=== PATIENT | male | born 1980 | race Caucasian/White ===

== ENCOUNTER 2018-05-31 22:35 | Inpatient (IN) | payer OTHER, MEDICAID ==
[~2018-05-31] VITALS: Ht 177.8 cm; Wt 102.1 kg
[2018-05-31] MEDS ORDERED: SODIUM CHLORIDE 0.9% 1,000 ML IV ONE (23:45)
[2018-06-01 01:01] LABS: BASOPHILS % 1.2 % (0.0-2.0); EOSINOPHILS % 1.6 % (0.0-5.0); HEMATOCRIT. 38.2 % (42.0-52.0); HEMOGLOBIN. 12.8 g/dL (14.0-18.0); LYMPHOCYTES % 16.6 % (20.0-50.0); MEAN CORPUSCULAR HEMOGLOBIN 27.1 pg (28.0-32.0); MEAN PLATELET VOLUME 7.1 fl (7.4-10.4); MONOCYTES % 14.7 % (2.0-8.0); NEUTROPHILS % 65.9 % (40.0-76.0); PLATELET 334 x1000/uL (130-400); RED BLOOD CELL COUNT 4.72 mill/uL (4.7-6.1); RED CELL DISTRIBUTION WIDTH 20.6 % (11.6-14.6)
[2018-06-01 01:03] LABS: CHLORIDE 106 mEq/L (98-107); CLARITY URINE CLEAR (CLEAR); COLOR URINE YELLOW (YELLOW); KETONES URINE NEGATIVE (NEGATIVE); LEUKOCYTE ESTERASE URINE NEGATIVE (NEGATIVE); NITRITE URINE NEGATIVE (NEGATIVE); OCCULT BLOOD URINE NEGATIVE (NEGATIVE); PH URINE 6.5 (4.5-8.0); PROTEIN URINE NEGATIVE (NEGATIVE); SPECIFIC GRAVITY URINE 1.015 (1.005-1.030); UROBILINOGEN URINE 0.2 E.U./dL (0.2-1.0)
[2018-06-01 01:09] LABS: INR 1.1; PARTIAL THROMBOPLASTIN TIME 36.9 sec (23.4-31.0); PROTHROMBIN TIME 10.7 sec (9.1-11.1)
[2018-06-01] MEDS ORDERED: MORPHINE SULFATE 4 MG/ML CPJ (NOT FOR IM USE) IV STA (02:07)
[2018-06-01] MEDS ORDERED: PANTOPRAZOLE SODIUM 40 MG/VIAL IV STA (02:07)
[2018-06-01] MEDS ORDERED: ONDANSETRON HCL 4MG/2ML INJ IV STA (02:07)
[2018-06-01] MEDS ORDERED: MORPHINE SULFATE 2 MG/ML CPJ (NOT FOR IM USE) IV ONE (06:14)
[2018-06-01] MEDS ORDERED: GUAIFENESIN 200MG/10ML SUGAR FREE UDC PO PRN (06:45)
[2018-06-01] MEDS ORDERED: DOCUSATE SODIUM 100MG CAPSULE PO PRN (06:45)
[2018-06-01] MEDS ORDERED: MAGNESIUM/ALUMINUM HYDROXIDE/SIMETHICONE 30ML UDC PO PRN (06:45)
[2018-06-01] MEDS ORDERED: CLONIDINE 0.1MG TABLET PO PRN (06:45)
[2018-06-01] MEDS ORDERED: HYDROCODONE/ACETAMINOPHEN 10/325MG TABLET PO PRN (06:45)
[2018-06-01] MEDS ORDERED: IPRATROPIUM/ALBUTEROL 0.5-3(2.5)MG/3ML NEB INH PRN (06:45)
[2018-06-01] MEDS ORDERED: NA PHOS,M-B/NA PHOS,DI-BA ENEMA 118ML PR PRN (09:00)
[2018-06-01 09:50] VITALS: BP 107/41
[2018-06-01] MEDS: ONDANSETRON HCL 4MG/2ML INJ IV PRN ×3 (09:59→17:54)
[2018-06-01 10:00] VITALS: BP 107/41
[2018-06-01] MEDS: MORPHINE SULFATE 4 MG/ML CPJ (NOT FOR IM USE) IV PRN ×4 (10:00→22:01)
[2018-06-01] MEDS: SODIUM CHLORIDE 0.45% 1,000 ML IV SCH (10:15)
[2018-06-01] MEDS ORDERED: CYCL10TA7 MT (10:44)
[2018-06-01] MEDS ORDERED: COLC0.6C3 MT (10:44)
[2018-06-01] MEDS ORDERED: ATOR40TA70 MT (10:44)
[2018-06-01] MEDS ORDERED: DIVA500T3 MT (10:44)
[2018-06-01] MEDS ORDERED: ALBU6.7H INH (10:44)
[2018-06-01] MEDS ORDERED: DIPH25TA24 MT (10:44)
[2018-06-01] MEDS ORDERED: DIAZ5TAB4 PO (10:44)
[2018-06-01] MEDS ORDERED: DOCU-150 MT (10:44)
[2018-06-01] MEDS ORDERED: OLAN2.5T29 MT (11:03)
[2018-06-01] MEDS ORDERED: POLY17PO28 MT (11:03)
[2018-06-01] MEDS ORDERED: GABA800T97 MT (11:03)
[2018-06-01] MEDS ORDERED: FERR325T6 MT (11:03)
[2018-06-01] MEDS ORDERED: MORP15TA67 MT (11:03)
[2018-06-01] MEDS ORDERED: WARF1TAB85 MT (11:03)
[2018-06-01] MEDS ORDERED: P20 PO (11:03)
[2018-06-01] MEDS ORDERED: METO25TA6 MT (11:03)
[2018-06-01] MEDS ORDERED: EZET10TA26 MT (11:03)
[2018-06-01] MEDS ORDERED: METF-414 MT (11:03)
[2018-06-01] MEDS ORDERED: RANO500T3 MT (11:03)
[2018-06-01] MEDS ORDERED: ONDA4TAB5 MT (11:03)
[2018-06-01] MEDS ORDERED: SUCR1TAB MT (11:03)
[2018-06-01] MEDS ORDERED: TRAZ-212 MT (11:03)
[2018-06-01] MEDS ORDERED: P50 PO (11:03)
[2018-06-01] MEDS ORDERED: MELO-106 MT (11:03)
[2018-06-01] MEDS ORDERED: PROT40 MT (11:03)
[2018-06-01 12:00] VITALS: BP 109/43
[2018-06-01 13:28] LABS: CHLORIDE 107 mEq/L (98-107)
[2018-06-01] MEDS: IPRATROPIUM/ALBUTEROL 0.5-3(2.5)MG/3ML NEB HHN SCH ×2 (15:54→21:34)
[2018-06-01 16:00] VITALS: BP 117/56
[2018-06-01 16:27] LABS: TOTAL IRON BINDING CAPACITY 238 ug/dL (250-450)
[2018-06-01 16:58] LABS: FOLIC ACID (FOLATE) SERUM 16.1 ng/mL (>5.38)
[2018-06-01] MEDS: PANTOPRAZOLE SODIUM 40 MG/VIAL IV SCH (17:54)
[2018-06-01 20:00] VITALS: BP 122/54
[2018-06-01 20:40] LABS: HEMATOCRIT 37.5 % (42.0-52.0); HEMOGLOBIN 12.4 g/dL (14.0-18.0)
[2018-06-01 21:08] LABS: LDL CHOLESTEROL 105 mg/dL (5-100)
[2018-06-01 21:11] LABS: CREATINE KINASE 65 IU/L (39-308); CREATINE KINASE MB FRACTION < 1.0 ng/mL (0.5-3.6); HDL CHOLESTEROL 39 mg/dL (40-59)
[2018-06-01 23:17] LABS: HEMATOCRIT 36.7 % (42.0-52.0)
[2018-06-02] VITALS: BP 110/56
[2018-06-02] MEDS: LORAZEPAM 2MG/ML CPJ IV PRN (00:57)
[2018-06-02] MEDS: DIPHENHYDRAMINE 50MG/ML VIAL IV PRN (01:36)
[2018-06-02] MEDS: ONDANSETRON HCL 4MG/2ML INJ IV PRN ×2 (02:13→21:04)
[2018-06-02] MEDS: IPRATROPIUM/ALBUTEROL 0.5-3(2.5)MG/3ML NEB HHN SCH ×6 (02:14→20:15)
[2018-06-02] MEDS: MORPHINE SULFATE 4 MG/ML CPJ (NOT FOR IM USE) IV PRN ×5 (02:14→21:05)
[2018-06-02 04:00] VITALS: BP 104/68
[2018-06-02 06:37] LABS: BASOPHILS % 0.9 % (0.0-2.0); EOSINOPHILS % 2.3 % (0.0-5.0); HEMATOCRIT. 36.3 % (42.0-52.0); LYMPHOCYTES % 12.9 % (20.0-50.0); MEAN CORPUSCULAR VOLUME 81.4 fL (80.0-94.0); MEAN PLATELET VOLUME 7.1 fl (7.4-10.4); MONOCYTES % 14.2 % (2.0-8.0); NEUTROPHILS % 69.7 % (40.0-76.0); PLATELET 303 x1000/uL (130-400); RED BLOOD CELL COUNT 4.46 mill/uL (4.7-6.1); RED CELL DISTRIBUTION WIDTH 19.6 % (11.6-14.6)
[2018-06-02 06:38] LABS: INR 1.1; PARTIAL THROMBOPLASTIN TIME 36.6 sec (23.4-31.0); PROTHROMBIN TIME 10.7 sec (9.1-11.1)
[2018-06-02 06:51] LABS: CHLORIDE 105 mEq/L (98-107)
[2018-06-02 07:06] LABS: CREATINE KINASE 46 IU/L (39-308); CREATINE KINASE MB FRACTION < 1.0 ng/mL (0.5-3.6); HDL CHOLESTEROL 36 mg/dL (40-59); LDL CHOLESTEROL 96 mg/dL (5-100); T4 FREE 0.87 ng/dL (0.76-1.46)
[2018-06-02 08:00] VITALS: BP 134/65
[2018-06-02] MEDS: PANTOPRAZOLE SODIUM 40 MG/VIAL IV SCH (08:35)
[2018-06-02] MEDS: SODIUM CHLORIDE 0.45% 1,000 ML IV SCH (08:36)
[2018-06-02 12:00] VITALS: BP 110/44
[2018-06-02] MEDS ORDERED: SIMETHICONE 40 MG/0.6 ML 30ML ONE (12:39)
[2018-06-02] MEDS ORDERED: SODIUM CHLORIDE 0.9% 10ML VIAL ONE (14:40)
[2018-06-02] MEDS ORDERED: DIAZEPAM 5 MG/ML 2ML CPJ IV PRN (15:00)
[2018-06-02] MEDS ORDERED: DIPHENHYDRAMINE 50MG/ML VIAL ONE (15:05)
[2018-06-02] MEDS ORDERED: MEPERIDINE HCL/PF 100MG/ML CPJ ONE (15:07)
[2018-06-02] MEDS ORDERED: MEPERIDINE HCL/PF 100MG/ML CPJ IV PRN (15:15)
[2018-06-02] MEDS ORDERED: DIPHENHYDRAMINE 50MG/ML VIAL IV PRN (15:16)
[2018-06-02 16:00] VITALS: BP 114/60
[2018-06-02] MEDS: METHYLPREDNISOLONE SOD SUCC 40 MG/ML VIAL IV SCH (17:02)
[2018-06-02 20:09] LABS: CREATINE KINASE 62 IU/L (39-308); CREATINE KINASE MB FRACTION < 1.0 ng/mL (0.5-3.6)
[2018-06-02 23:41] VITALS: BP 106/47
[2018-06-03] MEDS: IPRATROPIUM/ALBUTEROL 0.5-3(2.5)MG/3ML NEB HHN SCH ×5 (00:28→21:35)
[2018-06-03] MEDS: METHYLPREDNISOLONE SOD SUCC 40 MG/ML VIAL IV SCH ×2 (01:20→06:52)
[2018-06-03] MEDS: MORPHINE SULFATE 4 MG/ML CPJ (NOT FOR IM USE) IV PRN ×5 (01:21→20:29)
[2018-06-03 04:00] VITALS: BP 125/71
[2018-06-03] MEDS: SODIUM CHLORIDE 0.45% 1,000 ML IV SCH (06:42)
[2018-06-03] MEDS: OMEPRAZOLE 20MG CAPSULE EXTENDED RELEASE PO SCH (07:40)
[2018-06-03] MEDS: PREDNISONE 20MG TABLET PO SCH (09:21)
[2018-06-03] MEDS: ONDANSETRON HCL 4MG/2ML INJ IV PRN ×3 (10:49→20:15)
[2018-06-03 12:00] VITALS: BP 104/53
[2018-06-03] MEDS ORDERED: LOPERAMIDE 2 MG/10 ML UDC PO PRN (12:15)
[2018-06-03] MEDS: LORAZEPAM 2MG/ML CPJ IV PRN (12:24)
[2018-06-03 16:00] VITALS: BP 136/67
[2018-06-03] MEDS: DIPHENHYDRAMINE 50MG/ML VIAL IV PRN (16:02)
[2018-06-03 20:00] VITALS: BP 133/87
[2018-06-04] VITALS: BP 119/76
[2018-06-04] MEDS: IPRATROPIUM/ALBUTEROL 0.5-3(2.5)MG/3ML NEB HHN SCH ×7 (00:13→22:50)
[2018-06-04] MEDS: ONDANSETRON HCL 4MG/2ML INJ IV PRN ×3 (00:48→20:02)
[2018-06-04] MEDS: MORPHINE SULFATE 4 MG/ML CPJ (NOT FOR IM USE) IV PRN ×4 (00:49→20:07)
[2018-06-04] MEDS: DIPHENHYDRAMINE 50MG/ML VIAL IV PRN ×4 (01:03→20:08)
[2018-06-04] MEDS: LORAZEPAM 2MG/ML CPJ IV PRN ×4 (01:03→20:04)
[2018-06-04 04:00] VITALS: BP 105/54
[2018-06-04] MEDS: BUDESONIDE 0.5MG/2ML NEB HHN SCH ×3 (04:12→16:00)
[2018-06-04] MEDS: SODIUM CHLORIDE 0.45% 1,000 ML IV SCH (06:14)
[2018-06-04] MEDS: OMEPRAZOLE 20MG CAPSULE EXTENDED RELEASE PO SCH (07:48)
[2018-06-04] MEDS: PREDNISONE 20MG TABLET PO SCH (07:48)
[2018-06-04 20:00] VITALS: BP 114/59
[2018-06-05] VITALS: BP 130/67
[2018-06-05] MEDS: MORPHINE SULFATE 4 MG/ML CPJ (NOT FOR IM USE) IV PRN ×2 (00:21→05:12)
[2018-06-05] MEDS: DIPHENHYDRAMINE 50MG/ML VIAL IV PRN ×2 (00:22→05:13)
[2018-06-05] MEDS: ONDANSETRON HCL 4MG/2ML INJ IV PRN ×2 (00:22→05:13)
[2018-06-05] MEDS: LORAZEPAM 2MG/ML CPJ IV PRN ×2 (00:22→05:13)
[2018-06-05] MEDS: IPRATROPIUM/ALBUTEROL 0.5-3(2.5)MG/3ML NEB HHN SCH ×4 (03:06→11:59)
[2018-06-05 08:00] VITALS: BP 107/61
[2018-06-05] MEDS ORDERED: DEXTROSE 50% WATER 50ML SYRINGE IV PRN (08:15)
[2018-06-05] MEDS: BUDESONIDE 0.5MG/2ML NEB HHN SCH (08:53)
[2018-06-05] MEDS: PREDNISONE 20MG TABLET PO SCH (10:35)
[2018-06-05] MEDS: OMEPRAZOLE 20MG CAPSULE EXTENDED RELEASE PO SCH (10:35)
[2018-06-05 12:00] VITALS: BP 103/71
[2018-06-05 12:19] VITALS: BP 107/61
[2018-06-05] MEDS ORDERED: BLOOD SUGAR DIAGNOSTIC STRIP TEST SCH (12:40)
[2018-06-05] MEDS ORDERED: INSULIN LISPRO 100 UNITS/ML SUBCUT SCH (13:10)
== END 2018-06-05 13:15 | disposition home or self-care (01) | DRG 241 ==
LOC: ER 22:35 → 7WST 06-01 02:44 → ENRESERV 06-01 08:22
PROVIDERS: ADMIT Internal Medicine; ATTEND Internal Medicine
PROC: 5A09357 Assistance with Respiratory Ventilation, Less than 24 Consecutive Hours, Continuous Positive Airway Pressure (ICD-10-PCS; 2018-06-02)
PROC: 0DB68ZX Excision of Stomach, Via Natural or Artificial Opening Endoscopic, Diagnostic (ICD-10-PCS; principal; 2018-06-02 14:00)
PROC: 5A09357 Assistance with Respiratory Ventilation, Less than 24 Consecutive Hours, Continuous Positive Airway Pressure (ICD-10-PCS; 2018-06-03)
PROC: 5A09357 Assistance with Respiratory Ventilation, Less than 24 Consecutive Hours, Continuous Positive Airway Pressure (ICD-10-PCS; 2018-06-04)
DX: K29.61 Other gastritis with bleeding (principal); D68.59 Other primary thrombophilia; I48.91 Unspecified atrial fibrillation; Q21.1 Atrial septal defect; D62 Acute posthemorrhagic anemia; E11.9 Type 2 diabetes mellitus without complications; E61.1 Iron deficiency; E66.9 Obesity, unspecified; E78.00 Pure hypercholesterolemia, unspecified; E78.5 Hyperlipidemia, unspecified; F43.10 Post-traumatic stress disorder, unspecified; G47.33 Obstructive sleep apnea (adult) (pediatric); M54.9 Dorsalgia, unspecified; G89.29 Other chronic pain; R07.9 Chest pain, unspecified; F32.9 Major depressive disorder, single episode, unspecified; I10 Essential (primary) hypertension; J45.909 Unspecified asthma, uncomplicated; M54.2 Cervicalgia; I25.119 Atherosclerotic heart disease of native coronary artery with unspecified angina pectoris; K21.9 Gastro-esophageal reflux disease without esophagitis; M06.9 Rheumatoid arthritis, unspecified; M79.7 Fibromyalgia; Z79.84 Long term (current) use of oral hypoglycemic drugs; I25.2 Old myocardial infarction; Z83.3 Family history of diabetes mellitus; Z79.01 Long term (current) use of anticoagulants; Z88.8 Allergy status to other drugs, medicaments and biological substances; Z79.899 Other long term (current) drug therapy; Z88.6 Allergy status to analgesic agent; Z91.041 Radiographic dye allergy status; Z91.013 Allergy to seafood; Z86.711 Personal history of pulmonary embolism; Z86.718 Personal history of other venous thrombosis and embolism; Z98.61 Coronary angioplasty status; Z68.32 Body mass index [BMI] 32.0-32.9, adult; V89.2XXA Person injured in unspecified motor-vehicle accident, traffic, initial encounter; Y93.89 Activity, other specified; Y92.89 Other specified places as the place of occurrence of the external cause; Y99.8 Other external cause status; R10.9 Unspecified abdominal pain
CPT/HCPCS: 36415; 71045; 78582; 80048; 80061; 82550; 82553; 82607; 82728; 82746; 83036; 83540; 83550; 83880; 84439; 84443; 84484; 85014; 85018; 85379; 86677; 86850; 86900; 88305; 88312; 88313; 93005; 93306; 93970; 94640; 94660; 96361; 96374; 96375; 96376; 99285; A4216; A9558; C1893; C9113; J1200; J2060; J2175; J2270; J2405; J2920; J7030; J7512; J7620; J7626